=== PATIENT | male | born 1990 | race Caucasian/White ===

== ENCOUNTER 2016-05-19 10:53 | Emergency (ER) | payer MEDICAID ==
--- NOTE | 2016-05-20 16:25 | ER ---
ADMIT: 05/19/2016 RM/LOC: ER [facility] MR#: [id number] [facility] [address], [place] [id number] KESHAV REDDING [address] [place] [address] Emergency Room Report SEX: M AGE: 26 : 1990 DATE: 05/19/2016 ADDENDUM: A 26-year-old male, coming in with discharge from his penis. He has at least nonspecific urethritis. Urine is pending. We are treating with Zithromax 1 g and Rocephin 500 mg IM. We will add more if the urine shows Trich. He was advised that he needs to follow up with his doctor p.r.n. as well as advise his partner. CONDITION ON DISCHARGE: Good. Ray Archuleta MD/ roseanna JOB #: [id number] CC: Ray Archuleta MD, Attending Physician Anurag Sal MD, Family Physician
== END 2016-05-19 12:05 | disposition home or self-care (01) ==
LOC: ER 10:53
DX: N34.1 Nonspecific urethritis (principal); Z20.2 Contact with and (suspected) exposure to infections with a predominantly sexual mode of transmission